=== PATIENT | male | born 1950 | race Caucasian/White ===

== ENCOUNTER 2016-11-04 18:13 | Inpatient (IN) | payer BC ==
[2016-11-04] MEDS ORDERED: MORPHINE SULFATE 4 MG/ML SYRINGE IV STA (18:20)
[2016-11-04] MEDS ORDERED: ASPIRIN 81 MG CHEW PO STA (18:20)
[2016-11-04] MEDS ORDERED: NITROGLYCERIN OINT 1 INCH/GM PACKET TOPICAL STA (18:20)
--- NOTE | 2016-11-04 18:23 | ED ---
General Adult HPI - General Chief complaint: Chest Pain Stated complaint: chest pain Time Seen by Provider: 11/04/16 18:19 Source: patient, EMS, RN notes reviewed Mode of arrival: EMS Limitations: no limitations - History of Present Illness Initial comments: Patient is a pleasant 66-year-old male presenting to the emergency department complaining of chest discomfort. Onset of symptoms was just prior to arrival. Patient was walking from his car. Patient has pressure in his chest with occasional mild radiation to the shoulder, right. Patient was nauseated earlier. Patient was sweaty earlier. Patient does feel somewhat short of breath. No history of similar symptoms previously. No leg pain or swelling. No cough or fever. No history of similar symptoms previously. Patient does have high cholesterol however does not take cholesterol medicine. No smoking. - Related Data Home Medications Medication Instructions Recorded Confirmed Artificial Tears-Hypromellose 1 drops BOTH EYES TID PRN 11/04/16 11/04/16 [Artificial Tear Drops] Cetirizine HCl [Zyrtec] 10 mg PO DAILY 11/04/16 11/04/16 Cromolyn Sodium 1 drops BOTH EYES Q4H PRN 11/04/16 11/04/16 Allergies Allergy/AdvReac Type Severity Reaction Status Date / Time glucosamine Allergy Rash/Hives/ Verified 11/04/16 18:38 Dyspnea Sulfa (Sulfonamide Allergy Rash/Hives/ Verified 11/04/16 18:38 Antibiotics) Dyspnea Review of Systems ROS Statement: Those systems with pertinent positive or pertinent negative responses have been documented in the HPI. ROS Other: All systems not noted in ROS Statement are negative. Constitutional: Denies: fever Eyes: Denies: eye pain ENT: Denies: ear pain Respiratory: Reports: dyspnea. Denies: cough Cardiovascular: Reports: chest pain Endocrine: Denies: fatigue Gastrointestinal: Denies: abdominal pain Genitourinary: Denies: dysuria Musculoskeletal: Denies: back pain Skin: Denies: rash Neurological: Denies: weakness Past Medical History Past Medical History: No Reported History, Hyperlipidemia History of Any Multi-Drug Resistant Organisms: None Reported Past Surgical History: Orthopedic Surgery Additional Past Surgical History / Comment(s): vasectomy Past Psychological History: No Psychological Hx Reported Smoking Status: Never smoker Past Alcohol Use History: None Reported Past Drug Use History: None Reported General Exam Limitations: no limitations General appearance: alert, in distress Head exam: Present: atraumatic Eye exam: Present: normal appearance, PERRL ENT exam: Present: normal oropharynx Neck exam: Present: normal inspection Respiratory exam: Present: normal lung sounds bilaterally Cardiovascular Exam: Present: regular rate, normal rhythm Expanded Peripheral pulses: 2+: Radial (R), Radial (L), Dorsalis Pedis (R), Dorsalis Pedis (L) GI/Abdominal exam: Present: soft. Absent: tenderness Extremities exam: Present: normal inspection. Absent: pedal edema, calf tenderness Neurological exam: Present: alert Psychiatric exam: Present: normal affect, normal mood Skin exam: Present: normal color Course Vital Signs 11/04/16 11/04/16 18:14 18:50 Temperature 96.9 F L Pulse Rate 67 62 Respiratory 24 18 Rate Blood Pressure 122/68 130/77 O2 Sat by Pulse 100 Oximetry - Reevaluation(s) Reevaluation #1: 11/04/16 18:23 Cardiology was paged 11/04/16 18:32 Case was discussed with Dr. Fierro. He does not feel patient meets STEMI criteria. He did review EKG. 11/04/16 18:57 Repeat EKG shows normal sinus rhythm 63. ND 138. QRS 94. QT 452. QTC 462. Normal axis. Septal Q waves. Inferior T wave inversion. Borderline EKG changes aVL and lateral. 11/04/16 19:09 Patient is having some continued symptoms. Case was again discussed with Dr. Fierro who recommended offering patient [facility]. Patient would like to go to the [facility] after further discussion. [facility] team has been called in. Dr. Fierro has been paged again to come evaluate patient for [facility]. Sound physician has been paged for admission for hospital call. 11/04/16 19:22 Case also discussed with Dr. elam, who will admit for hospital call. EKG Findings - EKG Comments: EKG Findings:: Normal sinus rhythm 76. ND 122. QRS 102. QT 424. QTC 477. Normal axis. Borderline ST elevation in aVL. ST depression inferiorly. Medical Decision Making - Lab Data Result diagrams: 11/04/16 18:30 11/04/16 18:30 Lab Results 08/21/17 08/21/17 08/21/17 Range/Units 18:30 18:30 18:30 WBC 9.5 (3.8-10.6) k/uL RBC 5.75 (4.30-5.90) m/uL Hgb 17.1 (13.0-17.5) gm/dL Hct 49.7 (39.0-53.0) % MCV 86.4 (80.0-100.0) fL MCH 29.8 (25.0-35.0) pg MCHC 34.4 (31.0-37.0) g/dL RDW 13.1 (11.5-15.5) % Plt Count 262 (150-450) k/uL Neutrophils % 64 % Lymphocytes % 27 % Monocytes % 5 % Eosinophils % 0 % Basophils % 1 % Neutrophils # 6.1 (1.3-7.7) k/uL Lymphocytes # 2.5 (1.0-4.8) k/uL Monocytes # 0.4 (0-1.0) k/uL Eosinophils # 0.0 (0-0.7) k/uL Basophils # 0.1 (0-0.2) k/uL PT (9.0-12.0) sec INR (<1.2) APTT (22.0-30.0) sec Sodium 138 (137-145) mmol/L Potassium 4.0 (3.5-5.1) mmol/L Chloride 106 (98-107) mmol/L Carbon Dioxide 19 L (22-30) mmol/L Anion Gap 13 mmol/L BUN 21 H (9-20) mg/dL Creatinine 0.96 (0.66-1.25) mg/dL Est GFR (MDRD) Af Amer >60 (>60 ml/min/1.73 sqM) Est GFR (MDRD) Non-Af >60 (>60 ml/min/1.73 sqM) Glucose 173 H (74-99) mg/dL Calcium 9.3 (8.4-10.2) mg/dL Magnesium 1.7 (1.6-2.3) mg/dL Total Bilirubin 1.1 (0.2-1.3) mg/dL AST 29 (17-59) U/L ALT 42 (21-72) U/L Alkaline Phosphatase 85 (38-126) U/L Total Creatine Kinase 131 (55-170) U/L CK-MB (CK-2) 4.3 H* (0.0-2.4) ng/mL CK-MB (CK-2) Rel Index 3.3 Troponin I 0.071 H* (0.000-0.034) ng/mL Total Protein 6.5 (6.3-8.2) g/dL Albumin 4.2 (3.5-5.0) g/dL 11/04/16 Range/Units 18:30 WBC (3.8-10.6) k/uL RBC (4.30-5.90) m/uL Hgb (13.0-17.5) gm/dL Hct (39.0-53.0) % MCV (80.0-100.0) fL MCH (25.0-35.0) pg MCHC (31.0-37.0) g/dL RDW (11.5-15.5) % Plt Count (150-450) k/uL Neutrophils % % Lymphocytes % % Monocytes % % Eosinophils % % Basophils % % Neutrophils # (1.3-7.7) k/uL Lymphocytes # (1.0-4.8) k/uL Monocytes # (0-1.0) k/uL Eosinophils # (0-0.7) k/uL Basophils # (0-0.2) k/uL PT 11.0 (9.0-12.0) sec INR 1.1 (<1.2) APTT 22.3 (22.0-30.0) sec Sodium (137-145) mmol/L Potassium (3.5-5.1) mmol/L Chloride (98-107) mmol/L Carbon Dioxide (22-30) mmol/L Anion Gap mmol/L BUN (9-20) mg/dL Creatinine (0.66-1.25) mg/dL Est GFR (MDRD) Af Amer (>60 ml/min/1.73 sqM) Est GFR (MDRD) Non-Af (>60 ml/min/1.73 sqM) Glucose (74-99) mg/dL Calcium (8.4-10.2) mg/dL Magnesium (1.6-2.3) mg/dL Total Bilirubin (0.2-1.3) mg/dL AST (17-59) U/L ALT (21-72) U/L Alkaline Phosphatase (38-126) U/L Total Creatine Kinase (55-170) U/L CK-MB (CK-2) (0.0-2.4) ng/mL CK-MB (CK-2) Rel Index Troponin I (0.000-0.034) ng/mL Total Protein (6.3-8.2) g/dL Albumin (3.5-5.0) g/dL - Radiology Data Radiology results: image reviewed (Chest x-ray shows no acute process) Critical Care Time Critical Care Time: Yes Total Critical Care Time: 32 Disposition Clinical Impression: Acute coronary syndrome Disposition: [facility]MITT[facility] IP [facility] Condition: Serious Referrals: Nonstaff,Physician [REFERRING] - 1-2 days Decision Time: 19:12
--- NOTE | 2016-11-04 18:37 | XR ---
EXAMINATION TYPE: XR chest 1V portable DATE OF EXAM: 11/04/2016 COMPARISON: NONE HISTORY: Chest pain TECHNIQUE: Single frontal view of the chest is obtained. FINDINGS: Heart and mediastinum are normal. Lungs are clear. Costophrenic angles are clear. There ar e chest leads. IMPRESSION: Normal chest
[2016-11-04 18:40] LABS: Basophils # (A) 0.1 k/uL (0-0.2); Basophils % (A) 1 %; CH 29.7; CHCM 34.6; Eosinophils % (A) 0 %; HCT 49.7 % (39.0-53.0); HDW 2.56; HGB 17.1 gm/dL (13.0-17.5); Luc % (Auto) 3; Lymphocytes # (A) 2.5 k/uL (1.0-4.8); Lymphocytes % (A) 27 %; MCH 29.8 pg (25.0-35.0); MCHC 34.4 g/dL (31.0-37.0); MCV 86.4 fL (80.0-100.0); Monocytes # (A) 0.4 k/uL (0-1.0); Monocytes % (A) 5 %; Neutrophils # (A) 6.1 k/uL (1.3-7.7); Neutrophils % (A) 64 %; RBC 5.75 m/uL (4.30-5.90); RDW 13.1 % (11.5-15.5); WBC 9.5 k/uL (3.8-10.6); WBC (Perox) 9.31
[2016-11-04 18:48] LABS: INR 1.1 (<1.2); Partial Thromboplastin Time 22.3 sec (22.0-30.0)
[2016-11-04 18:51] LABS: ALT 42 U/L (21-72); AST 29 U/L (17-59); Alkaline Phosphatase 85 U/L (38-126); Anion Gap 13 mmol/L; Blood Urea Nitrogen 21 mg/dL (9-20); Calcium 9.3 mg/dL (8.4-10.2); Carbon Dioxide 19 mmol/L (22-30); Chloride 106 mmol/L (98-107); Glucose 173 mg/dL (74-99); Magnesium 1.7 mg/dL (1.6-2.3); Non-African American GFR(MDRD) >60 (>60 ml/min/1.73 sqM); Sodium 138 mmol/L (137-145); Total Bilirubin 1.1 mg/dL (0.2-1.3); Total Protein 6.5 g/dL (6.3-8.2)
[2016-11-04] MEDS ORDERED: MORPHINE SULFATE 4 MG/ML SYRINGE IVP STA (18:57)
[2016-11-04] MEDS ORDERED: HEPARIN SODIUM,PORCINE 5,000 UNIT/ML 1 ML VIAL IV PRN (19:11)
[2016-11-04] MEDS ORDERED: HEPARIN SODIUM,PORCINE 5,000 UNIT/ML 1 ML VIAL IV ONE (19:11)
[2016-11-04] MEDS ORDERED: HEPARIN SODIUM,PORCINE/D5W PMX 25,000 UNIT in DEXTROSE/WATER 1 500ML.BAG IV SCH (19:15)
[2016-11-04 19:17] LABS: Creatine Kinase MB 4.3 ng/mL (0.0-2.4); Troponin I 0.071 ng/mL (0.000-0.034)
[2016-11-04] MEDS ORDERED: fentaNYL (PF) 50 MCG/ML 2 ML AMP ONE (19:59)
[2016-11-04] MEDS ORDERED: LIDOCAINE 2% INJ 20 MG/ML (20 ML MDV) ONE (19:59)
[2016-11-04] MEDS ORDERED: MIDAZOLAM 2 MG/2 ML VIAL ONE (19:59)
[2016-11-04] MEDS ORDERED: MIDAZOLAM 2 MG/2 ML VIAL IVP ONE (20:00)
[2016-11-04] MEDS ORDERED: fentaNYL (PF) 50 MCG/ML 2 ML AMP IV ONE (20:00)
--- NOTE | 2016-11-04 20:05 | P.CRDCN ---
History of Present Illness Consult date: 11/04/16 History of present illness: This is a 66-year-old gentleman with no significant past medical history except hypercholesterolemia who has been having some burning pain in the epigastric and lower sternal area for the last few days. Today around 5:00 he started having more chest pain with radiation to the back which has been fluctuating. He has been having some pain in both arms. He is nauseated and also short of breath. His EKG showed some T-wave inversion in inferior leads, some mild ST elevation in 1 and aVL .Because of diffuse EKG changes and ongoing chest pains, patient is given the option of having cardiac catheterization for definitive diagnosis and further intervention as needed.. His explained the risks and benefits of the procedure which she fully understood and accepted Review of Systems Not Obtained Past Medical History Past Medical History: No Reported History, Hyperlipidemia History of Any Multi-Drug Resistant Organisms: None Reported Past Surgical History: Orthopedic Surgery Additional Past Surgical History / Comment(s): vasectomy Past Psychological History: No Psychological Hx Reported Smoking Status: Never smoker Past Alcohol Use History: None Reported Past Drug Use History: None Reported Medications and Allergies Home Medications Medication Instructions Recorded Confirmed Type Artificial Tears-Hypromellose 1 drops BOTH EYES TID PRN 11/04/16 11/04/16 History [Artificial Tear Drops] Cetirizine HCl [Zyrtec] 10 mg PO DAILY 11/04/16 11/04/16 History Cromolyn Sodium 1 drops BOTH EYES Q4H PRN 11/04/16 11/04/16 History Allergies Allergy/AdvReac Type Severity Reaction Status Date / Time glucosamine Allergy Rash/Hives/ Verified 11/04/16 18:38 Dyspnea Sulfa (Sulfonamide Allergy Rash/Hives/ Verified 11/04/16 18:38 Antibiotics) Dyspnea Physical Exam Vitals: Vital Signs Temp Pulse Resp BP Pulse Ox 11/04/16 19:27 58 L 20 139/79 100 11/04/16 18:50 62 18 130/77 100 11/04/16 18:14 96.9 F L 67 24 122/68 Intake and Output 11/04/16 11/04/16 11/04/16 06:59 14:59 22:59 Other: Weight 79.379 kg Patient Weight 11/05/16 06:59 Weight 79.379 kg GENERAL EXAM: Patient is alert and oriented and doesn't appear to be in any acute distress HEENT: Normocephalic. Normal reaction of pupils, equal size, normal range of extraocular motion. No erythema or exudates in the throat. NECK: No masses, no nuchal rigidity. CHEST: No chest wall deformity. LUNGS: Equal air entry with no crackles or wheeze. HEART: S1 and S2 normal with no audible mumurs or gallops. Regular rhythm, femorals equal on both sides.. ABDOMEN: No hepatosplenomegaly, normal bowel sounds, no guarding or rigidity. SKIN: No rashes CENTRAL NERVOUS SYSTEM: No focal deficits. EXTREMITIES: No cyanosis, clubbing or edema. Results 11/04/16 18:30 11/04/16 18:30 Cardiac Enzymes 11/04/16 11/04/16 Range/Units 18:30 18:30 AST 29 (17-59) U/L CK-MB (CK-2) 4.3 H* (0.0-2.4) ng/mL Troponin I 0.071 H* (0.000-0.034) ng/mL Coagulation 11/04/16 Range/Units 18:30 PT 11.0 (9.0-12.0) sec APTT 22.3 (22.0-30.0) sec CBC 11/04/16 Range/Units 18:30 WBC 9.5 (3.8-10.6) k/uL RBC 5.75 (4.30-5.90) m/uL Hgb 17.1 (13.0-17.5) gm/dL Hct 49.7 (39.0-53.0) % Plt Count 262 (150-450) k/uL Comprehensive Metabolic Panel 11/04/16 Range/Units 18:30 Sodium 138 (137-145) mmol/L Potassium 4.0 (3.5-5.1) mmol/L Chloride 106 (98-107) mmol/L Carbon Dioxide 19 L (22-30) mmol/L BUN 21 H (9-20) mg/dL Creatinine 0.96 (0.66-1.25) mg/dL Glucose 173 H (74-99) mg/dL Calcium 9.3 (8.4-10.2) mg/dL AST 29 (17-59) U/L ALT 42 (21-72) U/L Alkaline Phosphatase 85 (38-126) U/L Total Protein 6.5 (6.3-8.2) g/dL Albumin 4.2 (3.5-5.0) g/dL Current Medications Generic Name Dose Route Start Last Admin Trade Name Freq PRN Reason Stop Dose Admin Heparin Sodium (Porcine) 0 unit 11/04/16 19:11 Heparin IV PER PROTOCOL PRN Low PTT Protocol Heparin Sodium/Dextrose 25,000 500 mls @ 19.05 mls/hr 11/04/16 19:15 19:21 unit/ IV Solution IV 12 units/kg/hr .Q24H LAITH 19.05 mls/hr Protocol Administration 12 UNITS/KG/HR Intake and Output 11/04/16 11/04/16 11/04/16 06:59 14:59 22:59 Other: Weight 79.379 kg Patient Weight 11/05/16 06:59 Weight 79.379 kg 11/04/16 18:30 11/04/16 18:30 EKG Interpretations (text) Sinus rhythm With a diffuse ST-T wave normalities and mild ST elevation in 1 and aVL Assessment and Plan (1) Acute coronary syndrome Status: Acute Plan: Continue with nitrates, heparin, beta blockers and aspirin. We'll proceed with cardiac catheterization for definitive diagnosis. Further recommendations depend upon the catheterization
[2016-11-04] MEDS ORDERED: LIDOCAINE 2% INJ 20 MG/ML SQ ONE (20:06)
[2016-11-04] MEDS ORDERED: IV FLUID CONTINUATION 925 ML IV ONE (20:09)
[2016-11-04] MEDS ORDERED: BIVALIRUDIN 250 MG in SODIUM CHLORIDE 0.9% 40 ML IV ONE (20:22)
[2016-11-04] MEDS ORDERED: BIVALIRUDIN BOLUS 250 MG/50 ML IV ONE (20:22)
[2016-11-04] MEDS ORDERED: HYDROmorphone 2 MG/ML 1 ML SYRINGE ONE (20:33)
[2016-11-04] MEDS ORDERED: HYDROmorphone 2 MG/ML 1 ML SYRINGE IVP ONE (20:34)
[2016-11-04] MEDS: NITROGLYCERIN 1000MCG/10ML SYRINGE INTRACORON ONE ×2 (20:35→20:48)
[2016-11-04] MEDS ORDERED: niCARdipine 25 MG/10 ML VIAL ONE (20:36)
--- NOTE | 2016-11-04 20:38 | P.PCN ---
Date of Procedure: 11/04/16 Preoperative Diagnosis: Acute coronary syndrome, non-ST elevation MS Postoperative Diagnosis: Total occlusion of the diagonal with 70% to 80% lesion in the LAD with filling defects in the midportion Procedure(s) Performed: Left heart catheterization without left ventriculography Implants: Indications for Procedure: Operative Findings: Description of Procedure: HISTORY: Is a 66-year-old gentleman with history of hypercholesterolemia who has been having some burning chest pain for the last 2-3 days in the midsternal and epigastric area. Around 5:30 this afternoon, Patient pain became more intense with radiation to the back and also to the arms associated with nausea vomiting and sweating. His EKG showed diffuse ST-T abnormalities with evidence of mild ST elevation 1 and aVL, prominent T waves in the anterior leads and negative T waves in inferior leads. Patient is advised to have a cardiac catheterization for definitive diagnosis and further intervention as needed. CONSENT:I have discussed the risks, benefits and alternative therapies for the above-mentioned procedure and for both sedation/analgesia as well as necessary blood product administration, if indicated, as they pertain to this patient. The patient has indicated understanding and acceptance of the risks and procedures discussed. PROCEDURE: Patient was brought to the lab in a fasting state. Patient was given some IV sedation. The right groin is infiltrated with lidocaine and right femoral artery was entered using Seldinger technique. A 6-Turkmen catheter was left in place and selective coronary arteriography and left ventriculography was performed. Patient tolerated the procedure well. Femoral angiogram was performed and Angio-Seal was applied for hemostasis. No immediate complications were noted and patient was transferred to [facility] in a stable condition Conscious Sedation: Versed :1mg Fentanyl : 50 g Duration [15]minutes HEMODYNAMICS: . The aortic pressure is 120/76. Left ventricular end-diastolic pressure is about 15. There is no gradient across the aortic valve SELECTIVE CORONARY ARTERIOGRAPHY: LEFT MAIN: Normal length and patent THE LEFT ANTERIOR DESCENDING CORONARY ARTERY: . Good caliber vessel giving rise to a diagonal branch which is totally occluded in the proximal portion. Beyond the origin of the diagonal the LAD has a long segment of his disease with 70% luminal narrowing and filling defect. THE LEFT CIRCUMFLEX AND IS CORONARY ARTERY: Fairly caliber vessel free of any occlusive disease THE RIGHT CORONARY ARTERY: Good Caliber vessel with mild disease LEFT VENTRICULOGRAPHY: Not Performed FINAL IMPRESSION: Total occlusion of the first diagonal with moderate disease in the mid LAD with a filling defect PLAN: Placement of the LAD and diagonal.This is is being attempted by Dr. Abreu PROGNOSIS: Guarded
[2016-11-04] MEDS ORDERED: PRASUGREL 10 MG TAB ONE (20:49)
[2016-11-04] MEDS ORDERED: PRASUGREL 10 MG TAB PO ONE (20:53)
[2016-11-04] MEDS ORDERED: IOHEXOL 350 MG/ML 125ML BOTTLE INJ ONE (21:00)
[2016-11-04] MEDS ORDERED: BIVALIRUDIN 250 MG in SODIUM CHLORIDE 0.9% 50 ML IV ONE (21:01)
[2016-11-04] MEDS ORDERED: ZOLPIDEM 5 MG TAB PO PRN (21:07)
[2016-11-04] MEDS ORDERED: NITROGLYCERIN SL TABS 0.4 MG TAB SUBLINGUAL PRN (21:07)
[2016-11-04] MEDS ORDERED: ATROPINE SULFATE 0.1 MG/ML 10ML SYRINGE IV PRN (21:07)
[2016-11-04] MEDS ORDERED: RX INFO: IV CONTRAST WAS GIVEN 1 EACH MISC MISCELLANE PRN (21:07)
[2016-11-04] MEDS ORDERED: MAG HYDROX/AL HYDROX/SIMETH 30 ML CUP PO PRN (21:07)
[2016-11-04] MEDS ORDERED: SODIUM CHLORIDE 0.9% 1,000 ML IV SCH (21:15)
[2016-11-04 21:26] LABS: Glucose,Whole Blood 126 mg/dL (75-99)
[2016-11-04 22:13] VITALS: BMI 24.1
[2016-11-04] MEDS ORDERED: NALOXONE 0.4 MG/ML 1 ML VIAL IV PRN (23:49)
--- NOTE | 2016-11-04 23:49 | P.HPIM ---
History of Present Illness Chief Complaint: Chest burning This is a 66-year-old male in generally [facility] health who presented to emergency department. The gentleman complaining of chest burning. This problem started couple of days ago. Was initially intermittent and mostly provoked by human smallest exertion. Alleviated by rest. Patient did not try any medication intervention. It was accompanied by extreme fatigue and sweating or shortness of breath. 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 He was walking she started feeling retrosternal burning and suddenly felt very tired and exhausted started having pain and numbness in both scans was short of breath and mildly nauseated. He went back to his vehicle sent for a little bit less visitation with his ongoing way he spoke with his and called EMS. EMS gave him some aspirin and transferred to emergency Department. EKG shows some minor T changes and his first set of troponin was elevated at 0.07. Patient was then taken to emergency To cardiac catheterization found to have a positive disease in his LAD and proximal diagonal which was treated by stent insertion. He wasn't transferred to intensive care unit where I conducted interview. Currently he symptoms completely resolve his feels stronger and more energetic and there is no chest pain or any other problem. Patient has been started on aspirin, Effient, Lopressor and Zestril by cardiology. Patient denied any headache cough expectoration fever or leg swelling. Review of Systems All systems: negative (What was mentioned in history of present illness) Constitutional: Denies chills, Denies chronic headaches, Denies daytime sleepiness, Denies sweats Cardiovascular: Reports as per HPI, Denies shortness of breath Respiratory: Reports as per HPI Gastrointestinal: Denies bloating, Denies change in bowel habits, Denies coffee ground emesis, Denies diarrhea, Denies heartburn, Denies indigestion, Denies nausea Musculoskeletal: Denies myalgias Integumentary: Denies pruritus, Denies rash Neurological: Denies aphasia, Denies balance difficulties, Denies change in mentation, Denies syncope Psychiatric: Denies anxiety Endocrine: Denies heat intolerance, Denies nocturia, Denies palpitations, Denies polydipsia, Denies polyuria Allergic/Immunologic: Reports seasonal allergies Past Medical History Past Medical History: No Reported History, Hyperlipidemia, Osteoarthritis (OA) History of Any Multi-Drug Resistant Organisms: None Reported Past Surgical History: Orthopedic Surgery Additional Past Surgical History / Comment(s): vasectomy Past Psychological History: No Psychological Hx Reported Smoking Status: Never smoker Past Alcohol Use History: None Reported Past Drug Use History: None Reported - Past Family History Mother Family Medical History: No Reported History (No reported history of heart diseases in family) Additional Family Medical History / Comment(s): brain aneurysm Medications and Allergies Home Medications Medication Instructions Recorded Confirmed Type Artificial Tears-Hypromellose 1 drops BOTH EYES TID PRN 11/04/16 11/04/16 History [Artificial Tear Drops] Cetirizine HCl [Zyrtec] 10 mg PO DAILY 11/04/16 11/04/16 History Cromolyn Sodium 1 drops BOTH EYES Q4H PRN 11/04/16 11/04/16 History Allergies Allergy/AdvReac Type Severity Reaction Status Date / Time glucosamine Allergy Rash/Hives/ Verified 11/04/16 18:38 Dyspnea Sulfa (Sulfonamide Allergy Rash/Hives/ Verified 11/04/16 18:38 Antibiotics) Dyspnea Physical Exam Vitals: Vital Signs Temp Pulse Resp BP Pulse Ox 11/04/16 23:20 50 L 8 L 140/77 99 11/04/16 23:10 52 L 17 124/67 99 11/04/16 23:00 52 L 14 124/67 99 11/04/16 22:50 57 L 8 L 125/66 99 11/04/16 22:40 55 L 19 116/67 96 11/04/16 22:30 52 L 19 116/67 98 11/04/16 22:20 49 L 9 L 121/68 99 11/04/16 22:10 47 L 7 L 119/69 99 11/04/16 22:00 50 L 17 119/69 98 11/04/16 21:50 79 31 H 153/76 97 11/04/16 21:40 54 L 11 L 136/71 98 11/04/16 21:30 53 L 13 136/71 100 11/04/16 21:25 97.8 F 52 L 11/04/16 20:00 97.8 F 15 98 11/04/16 19:44 97.8 F 15 98 11/04/16 19:27 58 L 20 139/79 100 11/04/16 18:50 62 18 130/77 100 11/04/16 18:14 96.9 F L 67 24 122/68 Intake and Output 11/04/16 11/04/16 11/05/16 14:59 22:59 06:59 Intake Total 365 Output Total 200 Balance 165 Intake: IV 265 Intake, IV Titration 100 Amount Sodium Chloride 0.9% 1, 100 000 ml @ 100 mls/hr IV . Q10H LAITH Rx#:[id number] Output: Urine 200 Other: Weight 78.5 kg Patient Weight 11/05/16 06:59 Weight 78.5 kg - Constitutional General appearance: average body habitus, cooperative - EENT Eyes: EOMI, PERRLA ENT: normal oropharynx - Neck Neck: no lymphadenopathy, no thyromegaly - Respiratory Respiratory: bilateral: CTA, negative: rales, rhonchi, wheezing - Cardiovascular Rhythm: regular Heart sounds: normal: S1, S2 - Gastrointestinal General gastrointestinal: no organomegaly, soft, no tenderness - Integumentary Integumentary: no jaundiced, normal - Neurologic Neurologic: CNII-XII intact - Psychiatric Psychiatric: A&O x's 3, appropriate affect Right groin site no swelling or bleeding The results. His pulse is 2+ bilateral Results CBC & Chem 7: 11/04/16 18:30 11/04/16 18:30 Labs: Abnormal Lab Results - Last 24 Hours (Table) 11/04/16 11/04/16 11/04/16 Range/Units 18:30 18:30 21:25 Carbon Dioxide 19 L (22-30) mmol/L BUN 21 H (9-20) mg/dL Glucose 173 H (74-99) mg/dL POC Glucose (mg/dL) 126 H (75-99) mg/dL CK-MB (CK-2) 4.3 H* (0.0-2.4) ng/mL Troponin I 0.071 H* (0.000-0.034) ng/mL Chest x-ray: report reviewed Thrombosis Risk Factor Assmnt - DVT/VTE Prophylaxis DVT/VTE Prophylaxis: Pharmacologic Prophylaxis ordered - Choose All That Apply Any of the Below Risk Factors Present?: Yes Each Factor Represents 1 point: Acute CA Each Risk Factor Represents 2 Points: Age 61-74 years Other congenital or acquired thrombophilia - If yes, enter type in comment: No Thrombosis Risk Factor Assessment Total Risk Factor Score: 3 Thrombosis Risk Factor Assessment Level: Moderate Risk Assessment and Plan (1) Non-STEMI (non-ST elevated myocardial infarction) Narrative/Plan: Status post cardiac catheterization with PCI Blood antiplatelet therapy per cardiology Beta brenden and ORLY inhibitor ordered Patient refused stockings of any sort and we will discuss this with him again in the morning on the benefits of statin discussed the patient in detail Echocardiogram Cardiac rehabilitation Check A1c Status: Acute
[2016-11-05] MEDS ORDERED: Magnesium Replacement Protocol 1 EACH MISC MISCELLANE PRN (00:45)
[2016-11-05] MEDS: MAGNESIUM SULFATE-D5W PMX 1 GM in DEXTROSE/WATER 1 100ML.BAG IVPB SCH ×2 (01:56→02:59)
[2016-11-05 04:49] LABS: Basophils % (A) 0 %; CH 29.1; CHCM 33.1; Eosinophils % (A) 0 %; HCT 44.9 % (39.0-53.0); HDW 2.49; Luc % (Auto) 2; Lymphocytes # (A) 1.4 k/uL (1.0-4.8); Lymphocytes % (A) 14 %; MCH 29.6 pg (25.0-35.0); MCHC 33.4 g/dL (31.0-37.0); MCV 88.5 fL (80.0-100.0); Mean Platelet Volume 6.8; Monocytes # (A) 0.7 k/uL (0-1.0); Monocytes % (A) 7 %; Neutrophils # (A) 7.7 k/uL (1.3-7.7); Neutrophils % (A) 76 %; RBC 5.08 m/uL (4.30-5.90); RDW 13.2 % (11.5-15.5); WBC 10.1 k/uL (3.8-10.6)
[2016-11-05 05:02] LABS: Anion Gap 6 mmol/L; Blood Urea Nitrogen 19 mg/dL (9-20); Calcium 8.5 mg/dL (8.4-10.2); Carbon Dioxide 27 mmol/L (22-30); Chloride 105 mmol/L (98-107); Glucose 118 mg/dL (74-99); Non-African American GFR(MDRD) >60 (>60 ml/min/1.73 sqM); Potassium 4.6 mmol/L (3.5-5.1); Sodium 138 mmol/L (137-145)
[2016-11-05 05:39] LABS: Magnesium 2.4 mg/dL (1.6-2.3)
[2016-11-05 06:31] LABS: Appearance,Urine Clear (Clear); Bilirubin,Urine Negative (Negative); Glucose,Urine (UA) Negative (Negative); Ketones,Urine 1+ (Negative); Leukocyte Esterase,Urine Negative (Negative); Nitrite,Urine Negative (Negative); PH, Urine 6.5 (5.0-8.0); Protein,Urine Trace (Negative); UA Billing (MACRO vs. MICRO) CHEM; Urobilinogen,Urine <2.0 mg/dL (<2.0)
[2016-11-05 06:41] LABS: Specific Gravity,Urine >1.050 (1.001-1.035)
[2016-11-05] MEDS ORDERED: HEPARIN SODIUM,PORCINE 5,000 UNIT/ML 1 ML VIAL SQ SCH (08:00)
[2016-11-05] MEDS: ASPIRIN 325 MG TAB PO SCH (08:49)
[2016-11-05] MEDS: LISINOPRIL 10 MG TAB PO SCH (08:49)
[2016-11-05] MEDS ORDERED: METOPROLOL TARTRATE 25 MG TAB PO SCH (09:00)
[2016-11-05 09:03] LABS: Hemoglobin A1C 5.5 % (4.2-6.1)
[2016-11-05] MEDS ORDERED: ARTIFICIAL TEARS-HYPROMELLOSE DROPS 15 ML BTL BOTH EYES PRN (09:53)
[2016-11-05] MEDS ORDERED: CROMOLYN SODIUM BOTH EYES PRN (09:53)
--- NOTE | 2016-11-05 10:20 | P.PN ---
Subjective Principal diagnosis: Non-STEMI This patient is a very pleasant 66 years old male who came to the hospital with shortness of breath and chest pain. She was found to have acute coronary syndrome/non-STEMI. Cardiology performed cardiac catheterization and found total occlusion of first diagonal artery and 70% luminal stenosis of LAD. Angioplasty with stent placement performed yesterday, patient is on heparin drip per cardiology. His last night was uneventful, patient is chest pain- free. He is refusing to take statins, understands the risks of not taken it. Denies any shortness of breath, no nausea or diaphoresis, no abdominal pain. Objective - Vital Signs Vital signs: Vital Signs Temp 97.9 F 11/05/16 08:00 Pulse 52 L 11/05/16 09:00 Resp 12 11/05/16 09:00 BP 112/64 11/05/16 09:00 Pulse Ox 96 11/05/16 09:00 Intake & Output 11/04/16 11/05/16 11/05/16 18:59 06:59 18:59 Intake Total 365 Output Total 725 Balance -360 Weight 79.379 kg 78.5 kg 78.5 kg Intake: IV 265 Intake, IV Titration 100 Amount Sodium Chloride 0.9% 1, 100 000 ml @ 100 mls/hr IV . Q10H [facility] Rx#:[id number] Output: Urine 725 Other: Voiding Method Toilet - Exam General: No acute distress, lying comfortably in bed HEENT: Head is normocephalic and atraumatic. Sclerae anicteric, oral mucosa moist and clear. Neck: Supple, no JVD, no thyromegaly or lymphadenopathy. Cardiovascular: Normal S1-S2, regular rate and rate, no murmurs rubs or gallops Chest: Clear to auscultation bilaterally, good respiratory effort. No wheezes or crackles appreciated. Abdomen: Soft, nondistended, nontender, positive bowel sounds. Extremities: No edema, no clubbing or cyanosis, pulses 2+ bilaterally. Neuro: Awake alert and oriented 3, good mood and affect. - Labs CBC & Chem 7: 11/05/16 03:45 11/05/16 03:45 Labs: Abnormal Lab Results - Last 24 Hours (Table) 11/04/16 11/04/16 11/04/16 Range/Units 18:30 18:30 21:25 Carbon Dioxide 19 L (22-30) mmol/L BUN 21 H (9-20) mg/dL Glucose 173 H (74-99) mg/dL POC Glucose (mg/dL) 126 H (75-99) mg/dL Magnesium (1.6-2.3) mg/dL CK-MB (CK-2) 4.3 H* (0.0-2.4) ng/mL Troponin I 0.071 H* (0.000-0.034) ng/mL Ur Specific [place] (1.001-1.035) Urine Protein (Negative) Urine Ketones (Negative) 11/05/16 11/05/16 Range/Units 03:45 06:00 Carbon Dioxide (22-30) mmol/L BUN (9-20) mg/dL Glucose 118 H (74-99) mg/dL POC Glucose (mg/dL) (75-99) mg/dL Magnesium 2.4 H (1.6-2.3) mg/dL CK-MB (CK-2) (0.0-2.4) ng/mL Troponin I (0.000-0.034) ng/mL Ur Specific [place] >1.050 H (1.001-1.035) Urine Protein Trace H (Negative) Urine Ketones 1+ H (Negative) Assessment and Plan (1) Non-STEMI (non-ST elevated myocardial infarction) Status: Acute Plan: Non-STEMI, status post PCI with stent placement. Continue with aspirin, metoprolol, nitroglycerin, Effient. Patient refused statins, discussed with cardiology. Will observe for 2-3 days per cardiology recommendations.
[2016-11-05] MEDS: LORATADINE 10 MG TAB PO SCH (11:25)
--- NOTE | 2016-11-05 11:35 | P.PN ---
Subjective Principal diagnosis: ami Patient is doing well. He was admitted with an anterolateral TN and he underwent stenting of the diagonal vessel as well as the mid LAD. He has no chest discomfort no undue shortness of breath no dizziness lightheadedness. He is very worried about taking statins because his mother and sister had severe reactions to statins. The exact reason for those symptoms were never clarified uninvestigated. On examination his blood pressure is 115/61 mmHg pulse rate in the 50s, normal respirations afebrile Heart sounds S1 and S2 are normal no murmurs or gallops Breath sounds are normal no rhonchi no crackles Abdomen soft nontender Extended is warm no edema No JVD Impression and plan Acute myocardial infarction status post stenting to the diagonal vessel as well as the mid LAD and currently on dual antiplatelet therapy Low dose. Blockers since his heart rates are in the low 50s Pravachol 10 mg 3 times a week I would recommend workup of his family members for the sensitivity to statins at the neuromuscular clinic either at the [facility] Objective - Vital Signs Vital signs: Vital Signs Temp 97.9 F 11/05/16 08:00 Pulse 51 L 11/05/16 11:01 Resp 12 11/05/16 11:01 BP 115/61 11/05/16 11:01 Pulse Ox 96 11/05/16 11:01 Intake & Output 11/04/16 11/05/16 11/05/16 18:59 06:59 18:59 Intake Total 365 Output Total 725 Balance -360 Weight 79.379 kg 78.5 kg 78.5 kg Intake: IV 265 Intake, IV Titration 100 Amount Sodium Chloride 0.9% 1, 100 000 ml @ 100 mls/hr IV . Q10H [facility] Rx#:[id number] Output: Urine 725 Other: Voiding Method Toilet - Labs CBC & Chem 7: 11/05/16 03:45 11/05/16 03:45 Labs: Abnormal Lab Results - Last 24 Hours (Table) 11/04/16 11/04/16 11/04/16 Range/Units 18:30 18:30 21:25 Carbon Dioxide 19 L (22-30) mmol/L BUN 21 H (9-20) mg/dL Glucose 173 H (74-99) mg/dL POC Glucose (mg/dL) 126 H (75-99) mg/dL Magnesium (1.6-2.3) mg/dL CK-MB (CK-2) 4.3 H* (0.0-2.4) ng/mL Troponin I 0.071 H* (0.000-0.034) ng/mL Ur Specific [place] (1.001-1.035) Urine Protein (Negative) Urine Ketones (Negative) 11/05/16 11/05/16 Range/Units 03:45 06:00 Carbon Dioxide (22-30) mmol/L BUN (9-20) mg/dL Glucose 118 H (74-99) mg/dL POC Glucose (mg/dL) (75-99) mg/dL Magnesium 2.4 H (1.6-2.3) mg/dL CK-MB (CK-2) (0.0-2.4) ng/mL Troponin I (0.000-0.034) ng/mL Ur Specific [place] >1.050 H (1.001-1.035) Urine Protein Trace H (Negative) Urine Ketones 1+ H (Negative)
--- NOTE | 2016-11-05 11:37 | ECHOF ---
Referral Reason:nstemi MEASUREMENTS -------- HEIGHT: 180.3 cm WEIGHT: 78.5 kg BP: 120/64 IVSd: 1.1 cm (0.6 - 1.1) LVIDd: 4.2 cm (3.9 - 5.3) LVPWd: 1.2 cm (0.6 - 1.1) IVSs: 2.1 cm LVIDs: 2.7 cm LVPWs: 1.7 cm Ao Diam: 3.5 cm (2.0 - 3.7) AV Cusp: 2.0 cm (1.5 - 2.6) LA Diam: 2.6 cm (2.7 - 3.8) MV EXCURSION: 14.924 mm (> 18.000) MV EF SLOPE: 100 mm/s (70 - 150) EPSS: 0.3 cm MV E John: 0.85 m/s MV DecT: 353 ms MV A John: 0.94 m/s MV E/A Ratio: 0.90 RAP: 5.00 mmHg RVSP: 33.21 mmHg FINDINGS -------- Sinus rhythm. This was a technically good study. There is borderline concentric left ventricular hypertrophy. Overall left ventricular systolic function is mild-moderately impaired with, an EF between 40 - 45 %. Mid anterior LV wall motion is hypokinetic. Mid lateral LV wall motion is normal. Apical lateral LV wall motion is hypokinetic. Anterolateral is hypokinetic The right ventricle is normal in size and function. The left atrium is normal in size. The right atrium is normal in size. The aortic valve is trileaflet, and appears structurally normal. No aortic stenosis or regurgitation. Mild mitral regurgitation is present. Mild tricuspid regurgitation present. The right ventricular systolic pressure, as measured by Doppler, is 33.21mmHg. Pulmonic valve appears structurally normal. The aortic root size is normal. The pericardium is normal. CONCLUSIONS -------- 1. Sinus rhythm. 2. The left atrium is normal in size. 3. The right atrium is normal in size. 4. The aortic valve is trileaflet, and appears structurally normal. No aortic stenosis or regurgitation. 5. Mild mitral regurgitation is present. 6. Mild tricuspid regurgitation present. 7. The right ventricular systolic pressure, as measured by Doppler, is 33.21mmHg. 8. Pulmonic valve appears structurally normal. 9. The aortic root size is normal. 10. The pericardium is normal. 11. This was a technically good study. 12. There is borderline concentric left ventricular hypertrophy. 13. Overall left ventricular systolic function is mild-moderately impaired with, an EF between 40 - 45 %. 14. Mid anterior LV wall motion is hypokinetic. 15. Mid lateral LV wall motion is normal. 16. Apical lateral LV wall motion is hypokinetic. 17. Anterolateral is hypokinetic 18. The right ventricle is normal in size and function. PATIENT FINANCIAL SPECIALIST: Kizzy Damon RDCS
[2016-11-05] MEDS: ACETAMINOPHEN TAB 325 MG TAB PO PRN (16:26)
[2016-11-05] MEDS ORDERED: ATORVASTATIN 80 MG TAB PO SCH (21:00)
[2016-11-05] MEDS ORDERED: PRAVASTATIN SODIUM 20 MG TAB PO SCH (21:00)
--- NOTE | 2016-11-05 21:03 | PTCA ---
DATE OF PROCEDURE: 11/04/2016 PERFORMING PHYSICIAN: Scott Yanes M.D. PROCEDURE PERFORMED: 1. Successful stenting of the first diagonal branch of the LAD using 2.75 x 18 mm Xience VERNELL with good angiographic results. 2. Successful stenting of the mid left anterior descending artery using 3.0 x 24 mm Promus Premier drug-eluting stent with good angiographic results. INDICATION: This is a pleasant 66-year-old gentleman who was admitted to the hospital with chest discomfort. He was having ongoing chest discomfort. The EKG showed ischemic changes that were concerning for ischemic changes. He was seen and evaluated by Dr. Fierro, who recommended proceeding with heart catheterization. He performed a heart catheterization was performed and it showed occluded first diagonal with severe disease in the mid LAD. APPROACH: Right common femoral artery. COMPLICATIONS: None. LEVEL OF SEDATION: Moderate with a sedation length of 45 minutes. PROCEDURE DESCRIPTION: After diagnostic heart catheterization was performed by Dr. Fierro and after reviewing the angiogram, we decided to proceed with intervention on the LAD. Anticoagulation was initiated using AngioMax. Subsequently I took an XP 3 5 LAD guide and the left main was engaged. A Whisper wire was used to wire the diagonal and cross the acute total occlusion and run-through wire was used to wire the LAD and leave the wire in the LAD. Subsequently the PTCA ballooning of the diagonal using 2.0 x 12 mm balloon; subsequently I deployed 2.5 x 18 mm Xience VERNELL, where the stent was positioned under fluoroscopic guidance and deployed under 12 atmospheres for 20 seconds. Subsequently I did balloon angioplasty of the LAD using 2.75 mm balloon and then deployed. I deployed 3.0 x 24 mm Promus Premier drug-eluting stent, where the stent again was positioned under fluoroscopic guidance and deployed under 12 atmospheres for 20 seconds. After that I post dilated the stent in the diagonal using 3 0 mm balloon. The following angiogram showed excellent angiographic results without perforation and without dissection, with a good flow in both the LAD and the diagonal. POST-PROCEDURE MANAGEMENT: 1. Dual antiplatelet therapy. 2. Risk factor modifications. 3. Followup with the patient. YESENIA
[2016-11-05] MEDS: PRASUGREL 10 MG TAB PO SCH (21:17)
[2016-11-05] MEDS: METOPROLOL TARTRATE 12.5 MG TAB PO SCH (21:17)
[2016-11-06 06:37] LABS: Basophils # (A) 0.1 k/uL (0-0.2); Basophils % (A) 1 %; CH 29.4; CHCM 33.4; Eosinophils # (A) 0.1 k/uL (0-0.7); Eosinophils % (A) 1 %; HCT 46.1 % (39.0-53.0); HDW 2.45; HGB 15.6 gm/dL (13.0-17.5); Luc # (Auto) 0.24; Luc % (Auto) 3; Lymphocytes # (A) 1.5 k/uL (1.0-4.8); Lymphocytes % (A) 18 %; MCH 29.9 pg (25.0-35.0); MCHC 33.8 g/dL (31.0-37.0); MCV 88.3 fL (80.0-100.0); Mean Platelet Volume 6.9; Monocytes # (A) 0.7 k/uL (0-1.0); Monocytes % (A) 9 %; Neutrophils # (A) 5.9 k/uL (1.3-7.7); Neutrophils % (A) 69 %; RBC 5.22 m/uL (4.30-5.90); RDW 13.3 % (11.5-15.5); WBC 8.5 k/uL (3.8-10.6); WBC (Perox) 8.53
[2016-11-06 07:43] LABS: Anion Gap 7 mmol/L; Blood Urea Nitrogen 20 mg/dL (9-20); Calcium 8.8 mg/dL (8.4-10.2); Carbon Dioxide 24 mmol/L (22-30); Chloride 106 mmol/L (98-107); Cholesterol 150 mg/dL (<200); Glucose 83 mg/dL (74-99); HDL Cholesterol 48 mg/dL (40-60); Non-African American GFR(MDRD) >60 (>60 ml/min/1.73 sqM); Potassium 4.3 mmol/L (3.5-5.1); Sodium 137 mmol/L (137-145)
[2016-11-06] MEDS: LISINOPRIL 10 MG TAB PO SCH (07:53)
[2016-11-06] MEDS: ASPIRIN 325 MG TAB PO SCH (07:53)
[2016-11-06] MEDS: PRASUGREL 10 MG TAB PO SCH (07:53)
[2016-11-06] MEDS: METOPROLOL TARTRATE 12.5 MG TAB PO SCH (07:53)
[2016-11-06] MEDS: LORATADINE 10 MG TAB PO SCH (07:54)
[2016-11-06] MEDS: ACETAMINOPHEN TAB 325 MG TAB PO PRN (08:00)
--- NOTE | 2016-11-06 09:42 | P.PN ---
Subjective Principal diagnosis: Non-STEMI Patient denies having any chest pain or shortness of breath. He could not sleep last night and has some nausea which he states is from sleep deprivation. No issues overnight. Objective - Vital Signs Vital signs: Vital Signs Temp 98.5 F 11/06/16 08:00 Pulse 62 11/06/16 08:00 Resp 16 11/06/16 08:00 BP 108/61 11/06/16 08:00 Pulse Ox 97 11/06/16 08:00 Intake & Output 11/05/16 11/06/16 11/06/16 18:59 06:59 18:59 Intake Total 125 600 240 Balance 125 600 240 Weight 78.5 kg 80.8 kg Intake: Oral 125 600 240 Other: Voiding Method Toilet # Voids 2 - Exam Constitutional: No acute distress, conversant, pleasant Eyes: Anicteric sclerae ENMT: NC/AT Oropharynx clear, no erythema, exudates Neck: Supple, FROM, no masses, or JVD No thyromegaly Lungs: Clear to auscultation Clear to percussion Normal respiratory effort, no accessory muscle use Cardiovascular: Heart regular in rate and rhythm, No murmurs, gallops, or rubs No peripheral edema Abdominal: Soft Nontender, no guarding, rebound or rigidity Abdomen moving with respiration Normoactive bowel sounds No hepatomegaly, No splenomegaly No subcutaneous nodules No rash, lesions No ulcers Extremities: No digital cyanosis No clubbing Pedal pulses intact and symmetrical Radial pulses intact and symmetrical Normal gait and station No calf tenderness Psychiatric: Alert and oriented to person, place and time Appropriate affect Intact judgement - Labs CBC & Chem 7: 11/06/16 05:27 11/06/16 05:27 Assessment and Plan (1) Non-STEMI (non-ST elevated myocardial infarction) Narrative/Plan: Non-STEMI, status post PCI with stent placement. Patient is stable and asymptomatic postprocedure. Continue current medical management with aspirin and beta blockers and statins. DC planning per cardiology recommendations. Status: Acute Time with Patient: Less than 30
[2016-11-06] MEDS: SPIRONOLACTONE 25 MG TAB PO SCH (12:25)
--- NOTE | 2016-11-06 14:36 | P.PN ---
Subjective Patient is doing well. He has no chest discomfort no dizziness lightheadedness. He could not sleep well last night because his roommate would prolong the TV in the middle of the night at top volume. He would like to go home by asked him not to do that No dizziness lightheadedness is ablating the hallways no rhythm issues at this time Yesterday he had nonsustained ventricular tachycardia of 2 different morphologies. 2-D echo shows left ventricular ejection fraction of 40-45% with anterior and lateral hypokinesis Mild bradycardia Labs are reviewed hemoglobin 15.6 electrolytes normal kidney function is normal In summary acute anterior wall infarct with a left ventricle ejection fraction of 40 having 45% with anterior and lateral hypokinesis on 2-D echo, no heart failure symptoms no chest discomfort doing very well. Nonsustained ventricular tachycardia noted yesterday 2 different morphologies, sinus bradycardia at rest heart rates have always been low Suggest Stop metoprolol Start carvedilol 3.125 mg twice daily, this evening Start Aldactone 25 mg by mouth daily this morning Continue lisinopril, continue aspirin and Effient, continue Pravachol 10 mg 3 times a week since he is worried about his family history of severe reactions with statins This is a gentleman show should stay in the hospital and be monitored on account of his cardio myopathy, ischemic in nature with nonsustained ventricular tachycardia on telemetry Objective - Vital Signs Vital signs: Vital Signs Temp 98.5 F 11/06/16 08:00 Pulse 54 L 11/06/16 09:37 Resp 16 11/06/16 08:00 BP 142/75 11/06/16 09:37 Pulse Ox 98 11/06/16 09:37 Intake & Output 11/05/16 11/06/16 11/06/16 18:59 06:59 18:59 Intake Total 125 600 240 Balance 125 600 240 Weight 78.5 kg 80.8 kg Intake: Oral 125 600 240 Other: Voiding Method Toilet # Voids 2 - Labs CBC & Chem 7: 11/06/16 05:27 11/06/16 05:27
[2016-11-06] MEDS: CARVEDILOL 3.125 MG TAB PO SCH (17:34)
[2016-11-06] MEDS ORDERED: MELATONIN 5 MG TABLET PO SCH (21:00)
[2016-11-07 06:28] LABS: Basophils # (A) 0.1 k/uL (0-0.2); Basophils % (A) 1 %; CH 29.4; CHCM 33.3; Eosinophils # (A) 0.2 k/uL (0-0.7); Eosinophils % (A) 2 %; HDW 2.45; HGB 16.2 gm/dL (13.0-17.5); Luc # (Auto) 0.38; Luc % (Auto) 4; Lymphocytes # (A) 2.4 k/uL (1.0-4.8); Lymphocytes % (A) 25 %; MCH 29.4 pg (25.0-35.0); MCHC 33.1 g/dL (31.0-37.0); MCV 88.7 fL (80.0-100.0); Mean Platelet Volume 6.5; Monocytes # (A) 0.9 k/uL (0-1.0); Monocytes % (A) 9 %; Neutrophils # (A) 5.9 k/uL (1.3-7.7); Neutrophils % (A) 60 %; RBC 5.53 m/uL (4.30-5.90); RDW 13.1 % (11.5-15.5); WBC 9.8 k/uL (3.8-10.6); WBC (Perox) 10.22
[2016-11-07] MEDS: CARVEDILOL 3.125 MG TAB PO SCH (06:42)
[2016-11-07] MEDS: ASPIRIN 325 MG TAB PO SCH (09:16)
[2016-11-07] MEDS: LISINOPRIL 10 MG TAB PO SCH (09:16)
[2016-11-07] MEDS: PRASUGREL 10 MG TAB PO SCH (09:17)
[2016-11-07] MEDS: LORATADINE 10 MG TAB PO SCH (09:17)
[2016-11-07] MEDS: SPIRONOLACTONE 25 MG TAB PO SCH (09:17)
[2016-11-07 10:56] VITALS: RESP 18
--- NOTE | 2016-11-07 11:09 | P.PN ---
Progress Note - Text Patient is doing well, post acute myocardial infarction status post stenting. No chest discomfort no shortness of breath I exercised him on telemetry he had no arrhythmias. Since the last 24 hours he's had no arrhythmias suggest discharge home on aspirin and Effient or Plavix, Aldactone 25 mg daily lisinopril and carvedilol 3.125 mg twice daily. Blood pressure is normal heart rates are better on carvedilol he is afebrile. Plan follow with Dr. Abreu in a week
--- NOTE | 2016-11-07 11:58 | P.PN ---
Subjective Principal diagnosis: Non-Q-wave NC This is a 66-year-old gentleman with no significant past medical history except for hyperlipidemia who presented to the hospital with a non-ST elevation myocardial infarction. He underwent angioplasty with stenting of the diagonal as well as the LAD. The day prior to yesterday patient was noted to have runs of nonsustained ventricular tachycardia. Since then he has had no further arrhythmias. Dr. Martinez did have the patient walk aggressively in the hallway today with no evidence of any ectopy. Overall he feels well, denies any chest pain, breathing overall has been stable. Objective - Vital Signs Vital signs: Vital Signs Temp 97.7 F 11/07/16 10:00 Pulse 62 11/07/16 10:00 Resp 18 11/07/16 10:00 BP 109/56 11/07/16 10:00 Pulse Ox 96 11/07/16 10:00 Intake & Output 11/06/16 11/07/16 11/07/16 18:59 06:59 18:59 Intake Total 600 120 Balance 600 120 Weight 78.7 kg Intake: Oral 600 120 Other: Voiding Method Toilet Toilet # Voids 1 1 - Exam PHYSICAL EXAMINATION: HEENT: Head is atraumatic, normocephalic. Pupils equal, round. Neck is supple. There is no elevated jugular venous pressure. HEART EXAMINATION: Heart S1, S2 normal. No murmur or gallop heard. CHEST EXAMINATION: Lungs are clear to auscultation and precussion. No chest wall tenderness is noted on palpation or with deep breathing. ABDOMEN: Soft, nontender. Bowel sounds are heard. No organomegaly noted. EXTREMITIES: 2+ peripheral pulses with no evidence of peripheral edema and no calf tenderness noted. NEUROLOGIC patient is awake, alert and oriented -3.] . - Labs CBC & Chem 7: 11/07/16 05:58 11/06/16 05:27 Assessment and Plan (1) Presence of stent in LAD coronary artery Status: Acute (2) Hyperlipemia Status: Acute (3) V-tach Status: Acute (4) Ischemic cardiomyopathy Status: Acute (5) Non-STEMI (non-ST elevated myocardial infarction) Status: Acute Plan: From cardiology's perspective, patient may be able to be discharged home today. He will be discharged home on aspirin 325 mg daily, Coreg 3.125 mg twice a day , lisinopril 10 mg daily, Effient 10 mg daily, pravastatin 10 mg 3 times weekly , Aldactone 25 mg daily and sublingual nitroglycerin as needed for chest pain. A follow-up appointment has been made in the office one week post discharge. Prescriptions have been provided. DNP note has been reviewed, I agree with a documented findings and plan of care. Patient was seen and examined.
[2016-11-07 14:14] VITALS: BP 103/66; PULSE 56; TEMP 97.5
--- NOTE | 2016-11-07 14:33 | P.DS ---
Providers Date of admission: 11/04/16 19:22 Expected date of discharge: 11/07/16 Attending physician: Los Caruso MD Consults: 11/04/16 21:07 Consult Physician Routine Consulting Provider: [facility] Consult Reason/Comments: Post Interventional patient Do you want consulting provider notified?: Already Contacted Primary care physician: Hammad Collins - Discharge Diagnosis(es) (1) Non-STEMI (non-ST elevated myocardial infarction) Non-Q-wave [place] This is a 66-year-old gentleman with no significant past medical history except for hyperlipidemia who presented to the hospital with a non-ST elevation myocardial infarction. He underwent angioplasty with stenting of the diagonal as well as the LAD. After PCI he was admitted to ICU and monitor her closely. The day prior to yesterday patient was noted to have runs of nonsustained ventricular tachycardia. Since then he has had no further arrhythmias. Patient has been started on aspirin, statins, beta blockers and Effient. The rest of the hospital course was uneventful, after angioplasty patient remained asymptomatic and hemodynamically stable. He is being discharged home in improved and stable condition with recommendations: 1. Follow up with PCP in 3-5 days. 2. Follow up with cardiology in 1 week. Time spent on coordination of discharge was less than 30 minutes. Current Visit: Yes Status: Acute Patient Condition at Discharge: Serious Plan - Discharge Summary New Discharge Prescriptions: New Aspirin 325 mg PO DAILY #30 tab Carvedilol [Coreg] 3.125 mg PO BID-W/MEALS #60 tab Lisinopril [Zestril] 10 mg PO DAILY #30 tab Nitroglycerin Sl Tabs [Nitrostat] 0.4 mg SUBLINGUAL Q5M PRN #25 tab PRN Reason: Chest Pain Prasugrel [Effient] 10 mg PO DAILY #30 tab Pravastatin Sodium [Pravachol] 10 mg PO TUTHSA@2100 #30 tab Spironolactone [Aldactone] 25 mg PO DAILY #303 tab Continue Cetirizine HCl [Zyrtec] 10 mg PO DAILY Artificial Tears-Hypromellose [Artificial Tear Drops] 1 drops BOTH EYES TID PRN PRN Reason: Dry Eye(S) Cromolyn Sodium 1 drops BOTH EYES Q4H PRN PRN Reason: Dry Eye(S) Discharge Medication List Artificial Tears-Hypromellose [Artificial Tear Drops] 1 drops BOTH EYES TID PRN 11/04/16 [History] Cetirizine HCl [Zyrtec] 10 mg PO DAILY 11/04/16 [History] Cromolyn Sodium 1 drops BOTH EYES Q4H PRN 11/04/16 [History] Aspirin 325 mg PO DAILY #30 tab 11/07/16 [Rx] Carvedilol [Coreg] 3.125 mg PO BID-W/MEALS #60 tab 11/07/16 [Rx] Lisinopril [Zestril] 10 mg PO DAILY #30 tab 11/07/16 [Rx] Nitroglycerin Sl Tabs [Nitrostat] 0.4 mg SUBLINGUAL Q5M PRN #25 tab 11/07/16 [Rx ] Prasugrel [Effient] 10 mg PO DAILY #30 tab 11/07/16 [Rx] Pravastatin Sodium [Pravachol] 10 mg PO TUTHSA@2100 #30 tab 11/07/16 [Rx] Spironolactone [Aldactone] 25 mg PO DAILY #303 tab 11/07/16 [Rx] Follow up Appointment(s)/Referral(s): Nonstaff,Physician [REFERRING] - 1-2 days Kel Fierro MD [STAFF PHYSICIAN] - 1 Week Discharge Disposition: HOME SELF-CARE
== END 2016-11-07 14:36 | disposition home or self-care (01) | DRG 247 ==
LOC: SUPCPDRO 18:13 → EC 18:13 → 6ICU 19:22 → 6SEL 11-05 13:52
PROVIDERS: ADMIT Hospitalist; ATTEND Hospitalist
PROC: 027035Z Dilation of Coronary Artery, One Artery with Two Drug-eluting Intraluminal Devices, Percutaneous Approach (ICD-10-PCS; principal; 2016-11-04 19:43)
PROC: 4A023N7 Measurement of Cardiac Sampling and Pressure, Left Heart, Percutaneous Approach (ICD-10-PCS; 2016-11-04 19:43)
PROC: B2111ZZ Fluoroscopy of Multiple Coronary Arteries using Low Osmolar Contrast (ICD-10-PCS; 2016-11-04 19:43)
DX: I21.4 Non-ST elevation (NSTEMI) myocardial infarction (principal); I47.2 Ventricular tachycardia; I25.5 Ischemic cardiomyopathy; I25.10 Atherosclerotic heart disease of native coronary artery without angina pectoris; E78.5 Hyperlipidemia, unspecified; E78.00 Pure hypercholesterolemia, unspecified; Z79.899 Other long term (current) drug therapy; Z88.2 Allergy status to sulfonamides; Z88.8 Allergy status to other drugs, medicaments and biological substances
CPT/HCPCS: 36415; 71010; 80048; 80053; 80061; 81003; 82550; 82553; 83036; 83735; 84484; 85025; 85610; 85730; 93005; 93306; 93458; 96365; 96375; 96376; 99291